=== PATIENT | female | born 1970 | race Caucasian/White ===

== ENCOUNTER → 2016-11-20 | Outpatient (CLI) | payer OTHER | END | disposition home or self-care (01) | LOC: C.PAPS 17:20 | PROVIDERS: ATTEND Obstetrics & Gynecology | DX: Z12.4 Encounter for screening for malignant neoplasm of cervix (principal); R87.616 Satisfactory cervical smear but lacking transformation zone ==

== ENCOUNTER 2017-02-23 06:22 | Inpatient (IN) | payer OTHER ==
[2017-01-25 10:30] VITALS: BMI 40.0
--- NOTE | 2017-01-25 11:04 | PAT Medication Instructions ---
Service Date Jan 25, 2017. Current Home Medication List Esomeprazole Magnesium (Nexium), 40 MG PO QAM Fish Oil ([place]-3), 1 CAP PO QPM Ibuprofen (Motrin), 600 MG PO BID Magnesium Oxide (Mag-Ox), 400 MG PO QPM Multivitamin (Multivitamin), 1 TAB PO QPM Medication Instructions For Your Scheduled Surgery - Hold the following medications 2 weeks prior to surgery: Fish Oil ([place]-3), 1 CAP PO QPM - Hold the following medications 10 days prior to surgery per surgeon's instructions: Ibuprofen (Motrin), 600 MG PO BID - Take the following medications the morning of surgery with a sip of water OTHERWISE NOTHING TO EAT OR DRINK AFTER MIDNIGHT: Esomeprazole Magnesium (Nexium), 40 MG PO QAM Tylenol (may take if needed up to 4 hours prior to surgery) - Take the following medications as scheduled the night before surgery: Magnesium Oxide (Mag-Ox), 400 MG PO QPM Multivitamin (Multivitamin), 1 TAB PO QPM Tylenol If you have any questions please call us at [phone] or [phone] or [phone]
[2017-01-25 11:17] LABS: BASO % 0.5 %; BASO ABS # 0.03 K/uL (0-0.2); COMPLETE YES; EOS % 1.4 %; HEMATOCRIT 39.6 % (37-47); IG% 0.2 %; LYMPH % 25.2 %; LYMPH ABS # 1.47 K/uL (1.2-3.4); MEAN CELL VOLUME 88.4 fL (80-100); MEAN CORPUSCULAR HEMOGLOBIN 29.7 pg (25-34); MEAN CORPUSCULAR HGB CONC 33.6 g/dl (32-36); MEAN PLATELET VOLUME 9.2 fL (7.4-10.4); MONO % 6.2 %; NEUT % 66.5 %; PLATELET COUNT 275 K/uL (130-400); RED BLOOD COUNT 4.48 M/uL (4.2-5.4); WHITE BLOOD COUNT 5.83 K/uL (4.8-10.8)
[2017-01-25 11:25] LABS: PROTHROMBIN TIME (PATIENT) 10.7 SECONDS (9.0-12.0)
[2017-01-25 11:44] LABS: BUN/CREATININE RATIO 14.7 (10-20); CREATININE 0.63 mg/dl (0.60-1.20); POTASSIUM 3.7 mmol/L (3.5-5.1)
--- NOTE | 2017-01-25 11:49 | DIAGNOSTIC IMAGING REPORT ---
CHEST 2 VIEWS ROUTINE HISTORY: 46 years-old Female PAT preadmission exam without acute chest complaints. COMPARISON: None available TECHNIQUE: Frontal and lateral views of the chest FINDINGS: The cardiomediastinal and hilar silhouettes are within normal limits. No pneumothorax, pleural effusion, focal airspace consolidation or overt pulmonary edema. Bones of the chest appear grossly intact. Degenerative changes are seen about the spine and shoulders. IMPRESSION: No acute cardiopulmonary process. The above report was generated using voice recognition software. It may contain grammatical, syntax or spelling errors. Electronically signed by: Dameon Carter M.D. 01/25/2017 11:48 AM Dictated Date/Time: 01/25/2017 11:47 AM
--- NOTE | 2017-02-17 13:56 | HISTORY & PHYSICAL EXAMINATION ---
DATE OF ADMISSION: 02/23/2017 CHIEF COMPLAINT: Bilateral knee pain and discomfort, left side greater than right. HISTORY OF PRESENT ILLNESS: A 46-year-old female from [place] who presents for surgical treatment of her left knee. She has had a 10-plus year history of bilateral knee pain and discomfort, left side a bit worse than the right. She did have a left knee scoped by Dr. Isidro years ago and then subsequently treated with steroid shots and viscosupplementation. This has become less successful over time. The shots helped her minimally. She has had marked pain with any type of weightbearing activities. She cannot walk more than a couple of blocks. She has twins that she is having quite a bit of difficulty keeping up with She would really like to have her left knee fixed. She takes anti-inflammatories including ibuprofen maximally with the minimal results. PAST MEDICAL HISTORY: 1. Gastroesophageal reflux disease. 2. Arthritis. 3. Obesity with a BMI of 41. PAST SURGICAL HISTORY: Include: 1. . 2. Left knee arthroscopy. ALLERGIES: PENICILLIN WHICH CAUSES RASH. No respiratory problems. CURRENT MEDICINES: Include Nexium 40 mg 6 Motrin 800 mg 3 times a day. SOCIAL HISTORY: female. She is 46. She lives in [place]. Rare alcohol intake. Two children. FAMILY HISTORY: Significant for colon cancer, heart disease, diabetes. REVIEW OF SYSTEMS: Negative for diabetes, neurologic problems, vascular problems, bleeding disorders. Denies any chest pain, no shortness of breath. No history of DVT or PE. PHYSICAL EXAMINATION: GENERAL: Reveals a healthy pleasant, middle-aged female. She looks to be in pretty good health. HEENT: Benign. NECK: Supple. No lymphadenopathy. LUNGS: Clear to auscultation. HEART: Has a regular rate and rhythm. ABDOMEN: Soft, nontender, nondistended. EXTREMITIES: Grossly neurovascularly intact except as follows: Examination of the left knee reveals the patient walks with a bit of a waddling gait. She has got well-healed portal sites around the knee. She does have a varus alignment to her knee. Pyjzd-ho-whwrifgh sized knee effusion. Range of motion is 5-120. No instability. No pain with hip motion. X-RAYS: X-rays of the left knee revealed advanced left knee DJD. She has complete loss of the medial joint space. She has got a little bit of tibial femoral subluxation. ASSESSMENT: A 46-year-old white female with advanced bilateral knee degenerative joint disease. The left side is a bit worse than the right. She would like to proceed with left knee replacement. She has failed all conservative care including knee arthroscopy. PLAN: We will take her to the operating room and do a left total knee replacement. The risks and benefits of this procedure were explained to the patient including but not limited to DVT, PE, , infection, neurologic injury, vascular injury, bleeding problems, pain, limited range of motion, stiffness, failure to relieve her symptoms, incomplete relief of symptoms, need for further surgery in the future, fracture, leg length inequality, nerve palsy, persistent pain, need for revision surgery, etc. The patient understands and desires to proceed. Informed consent obtained. I did talk with this patient about her young age and may be knee can be revised in the future. I also talked about her weight and her increased risk of infection as a result. She is aware of this and would like to proceed. She is really begging to have her knee replaced to try and maintain some degree of active lifestyle. As far as discharge plans, she is planning to be discharged to home, using [facility] home health program. Her will assist in her care as well as her twins. JOLIE
[~2017-02-23] VITALS: Ht 162.6 cm; Wt 109.1 kg
[2017-02-23] VITALS (7 sets, daily range): BP systolic 107–138; BP diastolic 69–84; PULSE 72–81; TEMP 36.4–36.9; O2SAT 93–99; Ht 162.6 cm; Wt 109.1 kg
[~2017-02-23 06:22] MED LIST: ACETAMINOPHEN 500 MG TAB PO SCH; BUPIVACAINE LIPOSOME 266 MG, BUPIVACAINE/EPINEPHRINE INJ 50 ML, SODIUM CHLORIDE 0.9% PF... INFIL SCH; CEFAZOLIN 2000MG IV PUSH 10 ML IV SCH; FAMOTIDINE 20 MG TAB PO SCH; GABAPENTIN 300 MG CAP PO SCH; IBUP600T44 PO; LACTATED RINGER'S 1000ML 1,000 ML IV SCH; LACTATED RINGER'S 1000ML 500 ML IV ONE; LACTATED RINGER'S 1000ML IV SCH; LORA-741 PO; MAGN400T6 PO; METOCLOPRAMIDE HCL 10 MG TAB PO SCH; MULT-506 PO; NXM/40 PO; OMEG10007 PO; SCOPOLAMINE 1.5 MG TDSY TD SCH; TRANEXAMIC ACID INJ 1,000 MG in SYRINGE 0 ML IV SCH
[2017-02-23] MEDS ORDERED: BUPIVACAINE 0.25% 30 ML VIAL ONE (06:38)
[2017-02-23] MEDS ORDERED: BUPIVACAINE 0.5 % 5 MG/1 ML PF 10ML VIAL ONE (06:38)
--- NOTE | 2017-02-23 06:56 | History & Physical Bridge Note ---
H&P Re-Evaluation Bridge Note: I have examined the patient, reviewed the History & Physical and in the interval since the performance of the History & Physical I have noted the following changes of clinical significance: No changes noted
[2017-02-23] MEDS ORDERED: MIDAZOLAM HCL 1 MG/ML 2ML VIAL ONE ×3 (07:27→09:32)
[2017-02-23] MEDS ORDERED: PROPOFOL IV EMULSION 10 MG/ML 20 ML VIAL IV ONE (07:27)
[2017-02-23] MEDS ORDERED: LIDOCAINE HCL 2% 2 ML VIAL (20MG/ML) ONE ×2 (07:27→09:21)
[2017-02-23] MEDS ORDERED: ATROPINE SULFATE 0.1 MG/ML 5ML SYR IV PRN (07:30)
[2017-02-23] MEDS ORDERED: EpHEDrine SULFATE INJ 50 MG/ML AMP IV PRN (07:30)
[2017-02-23] MEDS ORDERED: ONDANSETRON INJ 2 MG/ML 2 ML VIAL IV PRN ×2 (07:30→10:45)
[2017-02-23] MEDS ORDERED: FENTANYL CITRATE INJ 50 MCG/1 ML 2 ML VIAL ONE (08:26)
[2017-02-23] MEDS ORDERED: BACITRACIN 50000 UNIT VIAL ONE (08:53)
[2017-02-23] MEDS ORDERED: BUPIVACAINE LIPOSOME 1/3% 266 MG/20 ML VIAL INFIL ONE (08:53)
[2017-02-23] MEDS ORDERED: BUPIVACAINE/EPINEPHRINE 0.25% 1:200,000 30 ML VIAL ONE (08:53)
[2017-02-23] MEDS ORDERED: SODIUM CHLORIDE 0.9% PF 50 ML VIAL ONE (08:53)
[2017-02-23] MEDS ORDERED: ONDANSETRON INJ 2 MG/ML 2 ML VIAL ONE (09:36)
[2017-02-23] MEDS ORDERED: ZOLPIDEM TARTRATE 5 MG TAB PO PRN (10:45)
[2017-02-23] MEDS ORDERED: BISACODYL 10 MG SUPP PR PRN (10:45)
[2017-02-23] MEDS ORDERED: DiphenhydrAMINE HCL 50 MG/ML VIAL IV PRN (10:45)
[2017-02-23] MEDS ORDERED: METOCLOPRAMIDE HCL INJ 5 MG/ML 2 ML VIAL IV PRN (10:45)
[2017-02-23] MEDS ORDERED: MAGNESIUM HYDROXIDE SUSP 30 ML UDC PO PRN (10:45)
[2017-02-23] MEDS ORDERED: ALUMINUM/MAGNESIUM/SIMETH (MAALOX MAX) 30 ML UDC PO PRN (10:45)
[2017-02-23] MEDS ORDERED: LORAZEPAM 0.5 MG TAB PO PRN (10:45)
[2017-02-23] MEDS ORDERED: MoRPHine SULFATE 2 MG/ML CARP IV PRN (10:45)
[2017-02-23] MEDS ORDERED: SILVER SULFADIAZINE 1% CR 50 GM JAR EXT PRN (10:45)
--- NOTE | 2017-02-23 10:45 | [facility] Post Operative Brief Note ---
Immediate Operative Summary Operative Date Feb 23, 2017. Pre-Operative Diagnosis Left knee degenerative joint disease Post-Operative Diagnosis Left knee degenerative joint disease Procedure(s) Performed Left total knee arthroplasty, cemented Surgeon Dr. Godoy Outside Plant Field Engineer Surgeon(s) Luis Alberto Jacobsen PA-C Estimated Blood Loss 50 mL Findings Left Knee DJD Fluids (cc crystalloids) 1500 cc Specimens A: Left knee bone and tissue Drains None Anesthesia Spinal Complication(s) None Disposition Recovery Room / PACU
[2017-02-23] MEDS ORDERED: FRRG PO (10:53)
[2017-02-23] MEDS ORDERED: RXC5 PO (11:06)
[2017-02-23] MEDS ORDERED: ASPEC325 PO (11:06)
[2017-02-23] MEDS ORDERED: ACET-24 PO (11:06)
[2017-02-23] MEDS ORDERED: MORP-157 PO (11:06)
--- NOTE | 2017-02-23 11:34 | Anesthesiology Progress Note ---
Anesthesia Post Op Note Date & Time Feb 23, 2017 at 11:34 Vital Signs Pain Intensity: 0 Vital Signs Past 12 Hours Date Time Temp Pulse Resp B/P (MAP) Pulse Ox O2 Delivery O2 Flow Rate FiO2 02/23/17 11:20 68 18 127/77 100 Nasal Cannula 2 02/23/17 11:10 67 13 124/71 98 Nasal Cannula 2 02/23/17 11:00 73 19 116/72 98 Nasal Cannula 2 02/23/17 10:52 36.9 78 16 123/69 98 Nasal Cannula 2 02/23/17 06:56 36.8 81 20 138/82 96 Room Air Notes Mental Status: alert / awake / arousable, participated in evaluation Pt Amnestic to Procedure: Yes Nausea / Vomiting: adequately controlled Pain: adequately controlled Airway Patency, RR, SpO2: stable & adequate BP & HR: stable & adequate Hydration State: stable & adequate Neuraxial Anesthesia: was administered, sensory block is resolving Anesthetic Complications: no major complications apparent
--- NOTE | 2017-02-23 11:55 | DIAGNOSTIC IMAGING REPORT ---
TWO VIEWS LEFT KNEE CLINICAL HISTORY: Postoperative examination. FINDINGS: AP and crosstable lateral portable views of the left knee are obtained. A left knee arthroplasty is in near anatomic alignment. There has been undersurface remodeling of the patella. No acute fracture is seen. There are expected postoperative changes around the knee including skin clips, soft tissue edema, and subcutaneous gas. IMPRESSION: Expected postoperative changes status post left knee arthroplasty. No acute fracture is seen. Electronically signed by: Azam Castro M.D. 02/23/2017 11:54 AM Dictated Date/Time: 02/23/2017 11:54 AM
[2017-02-23] MEDS: D5W AND 1/2NSS + 20MEQ KCL 1,000 ML IV SCH ×2 (13:36→21:18)
[2017-02-23] MEDS: KETOROLAC TROMETHAMINE 30 MG/ML VIAL IV. SCH ×2 (13:37→18:24)
--- NOTE | 2017-02-23 13:55 | OPERATIVE REPORT ---
DATE OF OPERATION: 02/23/2017 SURGEON: Yan Godoy MD OFFICE AUDITOR: FERNANDEZ Thorne PREOPERATIVE DIAGNOSIS: Left knee degenerative joint disease. POSTOPERATIVE DIAGNOSIS: Same. PROCEDURE PERFORMED: Left cemented posterior stabilized total knee arthroplasty. COMPLICATIONS: None. ESTIMATED BLOOD LOSS: 50 mL. FLUID REPLACEMENT: 1500 mL crystalloid fluid replacement. TOURNIQUET TIME: 54 minutes at 300 mmHg. ANESTHESIA: Spinal with adductor canal block. DRAINS: None. SPECIMENS: Left knee sent for pathology. OPERATIVE INDICATIONS: The patient is a 46-year-old female who has had a long history of bilateral knee pain and discomfort, left side greater than the right. She has been bothered for over 10 years. She has been through extensive conservative treatment including knee arthroscopy done on the outside. She has been through steroid shots and viscosupplementation. This became less successful over time. She elected to proceed with total knee arthroplasty. OPERATIVE FINDINGS: Operative findings revealed advanced left knee DJD. She had grade 4 dceg-it-gijb disease of the medial femoral condyle and medial tibial plateau. She had grade 3 changes in the patellofemoral joint. She had a moderate sized joint effusion. She had a fixed varus deformity to her knee. OPERATIVE IMPLANTS: Operative implants consisted of: 1. Biomet Vanguard left size 65 posterior stabilized femoral component. 2. Biomet size 67 tibial tray. 3. A 10-mm posterior stabilized polyethylene insert. 4. A 31 x 8 all poly patella. OPERATIVE PROCEDURE: The patient was taken to the operating room, identified and placed on the operating table in the supine position. All contact areas were appropriately padded. IV antibiotics were provided by the anesthesia team. A spinal anesthetic and adductor canal block had been provided in the holding area. Montague catheter was placed in sterile fashion. A left thigh tourniquet was then placed and left lower extremity was then prepped and draped in the usual sterile fashion. The left leg was elevated and exsanguinated with Esmarch and tourniquet was placed at 300 mmHg. An anterior approach of the left knee was then performed through a longitudinal incision centered over the patella. Sharp dissection was carried out through the subcutaneous tissues down to the level of the extensor mechanism. Medial parapatellar arthrotomy incision was made. Some subperiosteal dissection was carried out medially. The fat pad was resected from beneath the patellar tendon. The lateral patellofemoral ligament was released. The patella was everted and knee was flexed. The osteophytes were taken off the distal aspect of the femur. The ACL and PCL were then released and the tibia subluxated anteriorly. The external tibial alignment jig was then placed in the anterior face of the tibia and adjusted 14 mm medially. Proximal tibial cut was made to remove about a millimeter of bone from the most deficient aspect of the medial tibial plateau. Some osteophytes were taken off medial and posteromedially. The tibia was sized to a size 67. Attention was then drawn to the femur. The distal femur was entered with a sharp drill. Intramedullary canal was suctioned. A left 5-degree valgus cutting guide was then placed. Distal femoral cutting block was pinned in place. Distal femoral cut was made to take an additional 3 mm of bone off the distal femur. Femur was then sized to a size 65. The AP cutting block was then pinned parallel to the epicondylar axis, which was 5 degrees of external rotation. The anterior cut, anterior chamfer, posterior cut, and posterior chamfer cuts were made. Box cutting guide was placed and adjusted slightly lateral and the box cut was made. The knee was flexed. The remnants of the medial and lateral menisci were excised. The osteophytes were taken off the posterior aspect of the femur. Trial femoral component was placed. Tibial tray was pinned in maximum external rotation and drill and stem punch were used to create defect in proximal tibia for the tibial tray. The knee was then trialed and the 10-mm insert fit most appropriately. Attention was then drawn to the patella. The patella was cleaned of all soft tissues. Patellar thickness measured 22 mm in thickness and it was cut down to 12. It was sized to a size 31 patella. Lug holes were drilled for the 31 patella. The lateral osteophyte was removed. Patella button was placed. Knee was taken through range of motion and the patella tracked nicely with no thumbs test. Attention was then drawn toward placement of permanent components. All trial components were removed. A double-batch Palacos G cement was mixed. A bone plug was placed in the distal femur to limit blood loss. A left size 65 posterior stabilized femoral component, size 67 tibial tray, a 10-mm posterior stabilized polyethylene insert, and a 31 x 8 all poly patella were then cemented in place. Knee was brought out into full extension until cement hardened. A final cement check was then performed. Pericapsular tissues were injected with a total of 100 mL of a combination of 20 mL of Exparel, 30 mL of normal saline, and 50 mL of 0.25% Marcaine with epinephrine. The tourniquet was then let down for final tourniquet time of 54 minutes. Hemostasis was assured with the use of electrocautery. The extensor mechanism was then closed with a combination of #1 PDS suture and #1 Vicryl suture in a [id number] fashion. Extensor mechanism was checked and found to be intact. The subcutaneous tissues were then closed with 2-0 Dexon suture in a buried interrupted fashion. Skin was closed with skin graciela. The leg was then cleaned and dried and a sterile dressing of Xeroform, 4 x 4, sterile cast padding and Jean-Paul bandage were applied. The patient then transferred to the recovery room in stable condition. The patient tolerated the procedure well with no complications. All needle and sponge counts were correct at the end of the operation. I attest to the content of the Intraoperative Record and any orders documented therein. Any exception s are noted below.
--- NOTE | 2017-02-23 14:39 | PROGRESS NOTE ---
DATE: 02/23/2017 SUBJECTIVE: A 46-year-old female postop from a left knee replacement. She is doing well. Just starting to get the function back in her leg. No particular pain yet. No chest pain or shortness of breath. Not feeling dizzy or lightheaded. OBJECTIVE: VITAL SIGNS: Temperature 36.8. Vital signs stable. GENERAL: Physical examination reveals a healthy, pleasant, middle-aged female. She is sitting up in bed and looks pretty comfortable. She is talking to her . LUNGS: Clear to auscultation. HEART: Has a regular rate and rhythm. ABDOMEN: Soft, nontender, and nondistended. EXTREMITIES: Grossly neurovascularly intact except as follows: Examination of the left leg reveals the leg to be well aligned. Dressing is clean, dry and intact. She can dorsiflex and plantarflex her foot slightly. Still weak from the block. She got brisk refill and good distal pulse. X-RAYS: X-rays of the left knee from recovery room were reviewed. It shows a left cemented posterior stabilized total knee arthroplasty. Components looked to be in good position. No signs of problems. ASSESSMENT: A 46-year-old female postop from a left knee replacement, doing well. Her pain is controlled. Nerve function is just returning, but appears to be intact. PLAN: 1. DVT prophylaxis including thigh-high TEDs, SCDs, and aspirin twice a day. 2. PT/OT. Weightbear as tolerated. Left total knee protocol. 3. Pain control. Doing well with current pain regimen. 4. IV antibiotics x24 hours. 5. Disposition: She is planning to be discharged to home with some home health once adequately recovered.
[2017-02-23] MEDS: OXYCODONE HCL IR 5 MG TAB (IMMEDIATE RELEASE) PO PRN ×3 (14:56→20:18)
[2017-02-23] MEDS: ACETAMINOPHEN 500 MG TAB PO SCH ×2 (15:17→21:20)
[2017-02-23] MEDS: CHECK SCOPOLAMINE PATCH PLACEMENT SCH ×2 (15:17→23:38)
[2017-02-23] MEDS: CEFAZOLIN IV 2,000 MG in SYRINGE 0 ML IV SCH (16:47)
[2017-02-23] MEDS ORDERED: TRANEXAMIC ACID INJ 1,000 MG in SODIUM CHLORIDE 0.9% 100ML 100 ML IV SCH (17:00)
[2017-02-23] MEDS: FERROUS GLUCONATE 324 MG TAB PO SCH (17:36)
--- NOTE | 2017-02-23 20:18 | Discharge Instructions ---
Discharge Instructions Date of Service Feb 23, 2017. Admission Reason for Admission: Left Knee Degenerative Joint Disease Discharge Discharge Diagnosis / Problem: Left Knee Replacement Discharge Goals Goal(s): Decrease discomfort, Improve function, Increase independence, Improve disease control, Therapeutic intervention Activity Recommendations Activity Limitations: per Instructions/Follow-up section Weightbearing Status: Left weightbearing . Instructions / Follow-Up Instructions / Follow-Up ACTIVITY RECOMMENDATIONS: Physical Therapy: * You will go to physical therapy three times each week for four to six weeks after your surgery in order to regain your knee range of motion and to retrain your knee to work properly. * It is just as important to make sure you are getting your knee perfectly straight as it is to regain your knee bend. * Taking a pain pill an hour before therapy can help you have a more productive and comfortable therapy session. Home Exercise: * You were shown a series of exercises (heel props, heel slides, etc.) in the hospital. Do these exercises three to four times each day including the exercises you were shown in physical therapy. Walking: * Get up and walk several times each day. For the first four weeks, try not to stand or walk for more than one hour at a time. If you do stand or walk for more than one hour, you will not hurt anything, but your knee and leg will likely swell. * As you feel comfortable, you may change from the walker or crutches to a cane and then to independent walking. MEDICATIONS: New Medicine: * You will likely be taking one or more of these medications: 1. MS Contin - A long-acting pain medication. Take 1 tablet twice a day for the first ten days to decrease your baseline level of pain. 2. Oxycodone - A quick and shorter-acting pain medication. Take one to two tablets every four to six hours to lessen your pain. 3. Iron Sulfate - Take two times each day for the month after surgery to help you replace the blood lost during surgery. 4. Aspirin - Thins your blood to lessen the chance of forming a blood clot. * The most common side effects of pain medicine and iron are nausea and constipation. If nausea or constipation is too much of a problem or if you have any questions about your new medicines or doses, call [facility] at . We will try to help you manage these issues. VERY IMPORTANT TO READ AND REVIEW" Pain: * The immediate post-operative period after knee replacement surgery is often quite painful. * You are given a prescription for pain medicine. You should take it, as directed, when you need it, especially before physical therapy and before going to bed. Pain that interferes with sleep is very common and can last several months. * You will likely need pain medicine for the first four to six weeks. It will not stop all of the pain. The pain will lessen and as you feel better, you may change to milder pain medicine such as Tylenol. * The most common side effects of pain medicine are nausea and constipation, so don't take more than you need. SPECIAL CARE INSTRUCTIONS: TEDs/Elastic Stockings: * The white elastic stockings help limit swelling and prevent blood clots from forming in your legs. The more you wear them, the more they work. * Wear them for six weeks after knee replacement surgery and four weeks after partial knee replacement. Prevention of Infection: * Take antibiotics one hour before any dental cleaning, dental work, urological procedure, gastrointestinal procedure or any invasive surgery in order to prevent your new joint from getting infected. * You may get the antibiotics from the doctor performing the procedure or you may call our office at before and we will call in a prescription to the pharmacy of your choice. Things to Watch For: * Drainage from the incision site that occurs more than one week after your surgery. * Severely increased knee/leg pain or swelling. * Increased redness at the incision site. * Fever above 102 degrees Fahrenheit. * Unusual chest pain or shortness of breath. * Unusual pain or burning with urination. Call [facility] at with any of the above problems or if you have any questions about your medicines or recovery. FOLLOW UP VISIT: Make an appointment to see your doctor for approximately two weeks after surgery for a progress check and staple removal by calling the office at . Current Hospital Diet Patient's current hospital diet: Regular Diet Discharge Diet Recommended Diet: Regular Diet Procedures Procedures Performed: Left total knee arthroplasty, cemented Pending Studies Studies pending at discharge: no Medical Emergencies . Who to Call and When: Medical Emergencies: If at any time you feel your situation is an emergency, please call [phone] immediately. . Non-Emergent Contact Non-Emergency issues call your: Surgeon . "Provider Documentation" section prepared by Yan Godoy. . VTE Core Measure Inpt VTE Proph given/why not?: Other Anticoagulation, T.E.D. Stockings, SCD's
[2017-02-23] MEDS ORDERED: SENNA 8.6 MG TAB PO SCH (21:00)
[2017-02-23] MEDS ORDERED: MAGNESIUM OXIDE 400 MG TAB PO SCH (21:00)
[2017-02-23] MEDS ORDERED: MULTIVITAMIN TAB PO SCH (21:00)
[2017-02-23] MEDS: TAPENTADOL ER 50 MG TABCR PO SCH (21:19)
[2017-02-23] MEDS: ASPIRIN 325 MG ECTAB PO SCH (21:21)
[2017-02-23] MEDS: DOCUSATE SODIUM 100 MG CAP PO SCH (21:21)
[2017-02-24] MEDS: KETOROLAC TROMETHAMINE 30 MG/ML VIAL IV. SCH ×3 (02:06→12:34)
[2017-02-24] MEDS: D5W AND 1/2NSS + 20MEQ KCL 1,000 ML IV SCH ×2 (02:07→08:43)
[2017-02-24] MEDS: CEFAZOLIN IV 2,000 MG in SYRINGE 0 ML IV SCH (02:08)
[2017-02-24 03:40] VITALS: BP 108/68; PULSE 81; TEMP 37.3; O2SAT 94
[2017-02-24] MEDS: ACETAMINOPHEN 500 MG TAB PO SCH ×2 (06:10→13:38)
[2017-02-24 07:30] LABS: HEMATOCRIT 34.7 % (37-47); MEAN CELL VOLUME 90.6 fL (80-100); MEAN CORPUSCULAR HEMOGLOBIN 29.2 pg (25-34); MEAN CORPUSCULAR HGB CONC 32.3 g/dl (32-36); MEAN PLATELET VOLUME 9.3 fL (7.4-10.4); PLATELET COUNT 231 K/uL (130-400); RED BLOOD COUNT 3.83 M/uL (4.2-5.4); WHITE BLOOD COUNT 8.61 K/uL (4.8-10.8)
[2017-02-24] MEDS: CHECK SCOPOLAMINE PATCH PLACEMENT SCH ×2 (07:34→16:13)
[2017-02-24 07:51] VITALS: BP 122/80; PULSE 82; TEMP 36.9; O2SAT 95
[2017-02-24 07:56] LABS: BUN/CREATININE RATIO 13.6 (10-20); CALCIUM 8.4 mg/dl (8.5-10.1); CREATININE 0.59 mg/dl (0.60-1.20); POTASSIUM 4.1 mmol/L (3.5-5.1)
[2017-02-24 08:23] VITALS: O2SAT 95
[2017-02-24] MEDS: FERROUS GLUCONATE 324 MG TAB PO SCH ×2 (08:38→12:31)
[2017-02-24] MEDS: ASPIRIN 325 MG ECTAB PO SCH (08:39)
[2017-02-24] MEDS: TAPENTADOL ER 50 MG TABCR PO SCH (08:39)
[2017-02-24] MEDS: DOCUSATE SODIUM 100 MG CAP PO SCH (08:39)
[2017-02-24] MEDS: OXYCODONE HCL IR 5 MG TAB (IMMEDIATE RELEASE) PO PRN ×2 (08:42→12:51)
[2017-02-24] MEDS ORDERED: MULTIVITAMIN TAB PO SCH (09:00)
[2017-02-24] MEDS ORDERED: PANTOprazole SOD 40 MG TAB PO SCH (09:00)
[2017-02-24] MEDS ORDERED: NON-FORMULARY MEDICATION (Esomeprazole Magnesium (Nexium) 40 MG) PO SCH (09:00)
--- NOTE | 2017-02-24 10:20 | Anesthesiology Progress Note ---
Anesthesia Post Op Note Date & Time Feb 24, 2017 at 10:18 Vital Signs Vital Signs Past 12 Hours Date Time Temp Pulse Resp B/P (MAP) Pulse Ox O2 Delivery O2 Flow Rate FiO2 02/24/17 08:23 95 Room Air 02/24/17 07:51 36.9 82 18 122/80 (94) 95 Room Air 02/24/17 07:15 Room Air 02/24/17 03:40 37.3 81 16 108/68 (81) 94 Room Air 02/23/17 23:15 Room Air 02/23/17 22:51 36.4 78 16 107/69 (82) 93 Room Air Notes Neuraxial Anesthesia: sensory block resolved
[2017-02-24 11:50] VITALS: BP 118/78; PULSE 73; TEMP 36.6; O2SAT 99
[2017-02-24 14:53] VITALS: BP 100/65; PULSE 73; TEMP 36.4; O2SAT 94
[2017-02-24 17:36] VITALS: BP 100/65; PULSE 73; TEMP 36.4; O2SAT 94
--- NOTE | 2017-02-24 17:49 | PROGRESS NOTE ---
DATE: 02/24/2017 SUBJECTIVE: A 46-year-old female postop day #1 from a left knee replacement. She is doing well. Pain is controlled. Therapy went well. She wants to go home. OBJECTIVE: VITAL SIGNS: Temperature is 36.4. Vital signs stable. GENERAL: Physical examination reveals a healthy, pleasant middle-aged female. She is lying in bed and looks pretty comfortable. LUNGS: Clear to auscultation. HEART: Regular rate and rhythm. ABDOMEN: Soft, nontender, and nondistended. EXTREMITIES: Grossly neurovascularly intact except as follows: Examination of the left lower extremity reveals the dressing to be clean, dry and intact. She can dorsiflex and plantarflex her foot appropriately. She is neurologically intact. LABORATORY DATA: Hemoglobin 11.2. Hematocrit 34.7. Electrolytes are stable. ASSESSMENT: A 46-year-old female postop day #1 from a left knee replacement, doing well. Pain is controlled. PLAN: 1. DVT prophylaxis including thigh-high TEDs, SCDs, and aspirin twice a day. 2. PT/OT. Weightbear as tolerated. Left total knee protocol. 3. Pain control. Doing well with current pain regimen. 4. Disposition: Plan to discharge to home with some home health. She is anxious and wants to go home this evening.
--- NOTE | 2017-03-01 14:56 | DISCHARGE SUMMARY ---
ADMITTING PHYSICIAN AND SURGEON: Dr. Godoy. ADMITTING DIAGNOSIS: Left knee degenerative joint disease. SURGERY PERFORMED: Left total knee arthroplasty. SECONDARY DIAGNOSES: Gastroesophageal reflux disease, arthritis, obesity. CONSULTS: None obtained. HISTORY AND PHYSICAL EXAMINATION: Well documented in the patient's chart. HOSPITAL COURSE: The patient was admitted on 02/23/2017, underwent total knee arthroplasty, tolerated the procedure well. There were no complications. She was transferred to the PACU postoperatively and later to the orthopedic floor for further care. She was given Ancef for antibiotic prophylaxis, RITA stockings, SCDs and aspirin for DVT prophylaxis. Hemoglobin, hematocrit and vital signs were monitored during her hospital stay and remained stable. She did not require any blood transfusions. There were no complications. By postoperative day 1, she was tolerating a general diet. Pain was controlled with oral pain medicine. She was participating in physical therapy and had no signs or symptoms of deep vein thrombosis. On postop day 1, she was discharged home and set up with home health services. She was given printed discharge instructions including new prescriptions for extra strength Tylenol, aspirin 325 mg b.i.d., iron supplement, MS Contin and oxycodone. Continue her home medications, continue physical therapy, weightbearing as tolerated, RITA stockings. Follow up in 10-12 days or sooner if there are any problems or concerns.
== END 2017-02-24 18:20 | disposition home health service (06) | DRG 470 ==
LOC: C.ACU 06:22 → C.3E 06:40 → ENRESERV 11:58
PROVIDERS: ADMIT Orthopaedic Surgery Sports Medicine; ATTEND Orthopaedic Surgery Sports Medicine
PROC: 0SRD0J9 Replacement of Left Knee Joint with Synthetic Substitute, Cemented, Open Approach (ICD-10-PCS; principal; 2017-02-23 08:55)
DX: M17.12 Unilateral primary osteoarthritis, left knee (principal); Z68.41 Body mass index [BMI] 40.0-44.9, adult; K21.9 Gastro-esophageal reflux disease without esophagitis; E66.9 Obesity, unspecified; Z88.0 Allergy status to penicillin; Z83.3 Family history of diabetes mellitus; Z82.49 Family history of ischemic heart disease and other diseases of the circulatory system

== ENCOUNTER → 2017-06-03 | Outpatient (CLI) | payer OTHER ==
[~2017-06-03] MED LIST changes: -ACETAMINOPHEN 500 MG TAB PO SCH; -BUPIVACAINE LIPOSOME 266 MG, BUPIVACAINE/EPINEPHRINE INJ 50 ML, SODIUM CHLORIDE 0.9% PF... INFIL SCH; -CEFAZOLIN 2000MG IV PUSH 10 ML IV SCH; -FAMOTIDINE 20 MG TAB PO SCH; -GABAPENTIN 300 MG CAP PO SCH; +IBUP-1451 PO; -IBUP600T44 PO; -LACTATED RINGER'S 1000ML 1,000 ML IV SCH; -LACTATED RINGER'S 1000ML 500 ML IV ONE; -LACTATED RINGER'S 1000ML IV SCH; -METOCLOPRAMIDE HCL 10 MG TAB PO SCH; -OMEG10007 PO; -SCOPOLAMINE 1.5 MG TDSY TD SCH; +SUMA25TA12 PO; -TRANEXAMIC ACID INJ 1,000 MG in SYRINGE 0 ML IV SCH
[2017-06-03 17:40] LABS: BASO % 0.3 %; BASO ABS # 0.02 K/uL (0-0.2); EOS ABS # 0.06 K/uL (0-0.5); HEMATOCRIT 39.8 % (37-47); HEMOGLOBIN 13.1 g/dL (12.0-16.0); IG# 0.02 K/uL (0.00-0.02); LYMPH ABS # 1.81 K/uL (1.2-3.4); MEAN CELL VOLUME 88.4 fL (80-100); MEAN CORPUSCULAR HEMOGLOBIN 29.1 pg (25-34); MEAN CORPUSCULAR HGB CONC 32.9 g/dl (32-36); MEAN PLATELET VOLUME 9.5 fL (7.4-10.4); MONO % 6.3 %; MONO ABS # 0.37 K/uL (0.11-0.59); NEUT % 61.1 %; NEUT ABS # 3.55 K/uL (1.4-6.5); PLATELET COUNT 293 K/uL (130-400); RED CELL DISTRIBUTION WIDTH CV 13.4 % (11.5-14.5); RED CELL DISTRIBUTION WIDTH SD 43.2 fL (36.4-46.3); WHITE BLOOD COUNT 5.83 K/uL (4.8-10.8)
[2017-06-03 17:48] LABS: PTT PATIENT 25.9 SECONDS (21.0-31.0)
== END | disposition home or self-care (01) ==
LOC: C.LABMFLN 10:55
PROVIDERS: ATTEND Orthopaedic Surgery Sports Medicine
DX: Z01.818 Encounter for other preprocedural examination (principal)

== ENCOUNTER 2017-06-11 09:55 | Inpatient (IN) | payer OTHER ==
[2017-05-06 15:56] VITALS: BMI 40.0
--- NOTE | 2017-06-03 22:14 | HISTORY & PHYSICAL EXAMINATION ---
DATE OF ADMISSION: 06/11/2017 CHIEF COMPLAINT: Right knee pain and discomfort. HISTORY OF PRESENT ILLNESS: A 46-year-old female who is now about 3-1/2 months out from a left knee replacement who presents for surgical treatment of her right knee. She has got a long history of bilateral knee pain and discomfort becoming less responsive to conservative care. This pain is on for over 10 years. She has been through extensive conservative treatment including steroid shots, viscous supplementation and medicines. The medicines and injection become less successful over time. Walking tolerance is limited. She has pain walking. Her left knee has done great and she would like to proceed with right knee replacement. PAST MEDICAL HISTORY: Significant for: 1. Gastroesophageal reflux disease. 2. Arthritis. 3. Obesity with BMI of 41. PAST SURGICAL HISTORY: Include: 1. . 2. Left knee arthroscopy. 3. Left knee total knee replacement done in 02/23/2017. ALLERGIES: PENICILLIN WHICH CAUSES A RASH. No respiratory problems. She got Ancef before her previous surgery. CURRENT MEDICINES: Include: 1. Nexium 40 mg a day. 2. Motrin 800 mg 3 times a day. SOCIAL HISTORY: A 46-year-old female. She is from [place]. Two children. FAMILY HISTORY: Colon cancer, heart disease, diabetes. REVIEW OF SYSTEMS: Negative for diabetes, neurologic problems, vascular problems, bleeding disorders. No chest pain or shortness of breath. No history of DVT or PE. PHYSICAL EXAMINATION: GENERAL: Reveals a pleasant, healthy, middle-aged female. She looks to be in good health. HEENT: Benign. NECK: Supple. No lymphadenopathy. LUNGS: Clear to auscultation. HEART: Has a regular rate and rhythm. ABDOMEN: Soft, nontender, nondistended. EXTREMITIES: Grossly neurovascularly intact except as follows: Examination of the left knee reveals a well-healed incision. She can walk without any limp on this side. Range of motion is 0-120. Good straight leg raise. No instability. Examination of the right knee reveals slight varus alignment. Moderate soft tissue envelope. She is tender over the medial joint line. Moderate size knee effusion. Range of motion 5-120. No instability. X-RAYS: X-ray of the right knee reveal advanced right knee DJD. She has got complete loss of her medial joint space. She has got tibial femoral subluxation. ASSESSMENT: A 46-year-old female now 3-1/2 months out from left knee replacement with advanced right knee degenerative joint disease. She has failed conservative treatment and would like to have her right knee replaced. She is very happy with her left knee. PLAN: We will take her to the operating room and do a right total knee replacement. The risks and benefits of this procedure were explained to the patient include but not limited to DVT, PE, , infection, neurological injury, vascular injury, bleeding problem, pain, limited range of motion, stiffness, failure to relieve her symptoms, incomplete relief of symptoms, need for further surgery in the future, fracture, leg length inequality, nerve palsy, need for blood transfusion, etc. The patient understands and desires to proceed. Informed consent was obtained. She is fully aware at her young age, she may need this revised 100 times in the future. As far as discharge plans, she is planning to be discharged to home with Home Health. She knows to stop the Motrin 10 days preop. [facility]
[~2017-06-11] VITALS: Ht 162.6 cm; Wt 109.1 kg
[2017-06-11] VITALS (8 sets, daily range): BP systolic 111–148; BP diastolic 67–89; PULSE 65–79; TEMP 36.4–37.1; O2SAT 94–100; Ht 162.6 cm; Wt 109.1 kg
[~2017-06-11 09:55] MED LIST changes: +ACETAMINOPHEN 500 MG TAB PO SCH; +BUPIVACAINE 0.5 % 5 MG/1 ML PF 10ML VIAL ONE; +BUPIVACAINE LIPOSOME 266 MG, BUPIVACAINE/EPINEPHRINE INJ 50 ML, SODIUM CHLORIDE 0.9% PF... INFIL SCH; +CEFAZOLIN 2000MG IV PUSH 15 ML IV SCH; +DEXAMETHASONE 4 MG TAB PO SCH; +FAMOTIDINE 20 MG TAB PO SCH; +LACTATED RINGER'S 1000ML 1,000 ML IV SCH; +LACTATED RINGER'S 1000ML 500 ML IV SCH; +LACTATED RINGER'S 1000ML IV SCH; +METOCLOPRAMIDE HCL 10 MG TAB PO SCH; +SCOPOLAMINE 1.5 MG TDSY TD SCH; +TRANEXAMIC ACID INJ 1,000 MG x 1 Bag Preop IV SCH
[2017-06-11] MEDS ORDERED: BACITRACIN 50000 UNIT VIAL ONE (10:37)
[2017-06-11] MEDS ORDERED: SODIUM CHLORIDE 0.9% PF 50 ML VIAL ONE (10:37)
[2017-06-11] MEDS ORDERED: BUPIVACAINE LIPOSOME 1/3% 266 MG/20 ML VIAL INFIL ONE (10:37)
[2017-06-11] MEDS ORDERED: EpINEphrine HCL INJ 1 MG/ML 1ML SYRINGE ONE (10:38)
[2017-06-11] MEDS ORDERED: BUPIVACAINE 0.25% 30 ML VIAL ONE ×2 (10:38→11:17)
[2017-06-11] MEDS ORDERED: MIDAZOLAM HCL 1 MG/ML 2ML VIAL ONE ×3 (11:34→12:05)
[2017-06-11] MEDS ORDERED: FENTANYL CITRATE INJ 50 MCG/1 ML 2 ML VIAL ONE (11:34)
[2017-06-11] MEDS ORDERED: LIDOCAINE HCL 2% 2 ML VIAL (20MG/ML) ONE (12:26)
[2017-06-11] MEDS ORDERED: ONDANSETRON INJ 2 MG/ML 2 ML VIAL ONE (12:26)
[2017-06-11] MEDS ORDERED: PROPOFOL IV EMULSION 10 MG/ML 20 ML VIAL IV ONE (12:26)
--- NOTE | 2017-06-11 13:44 | [facility] Post Operative Brief Note ---
Immediate Operative Summary Operative Date Jun 11, 2017. Pre-Operative Diagnosis Degenerative Joint Disease Right Knee Post-Operative Diagnosis Degenerative Joint Disease Right Knee Procedure(s) Performed Right Total Knee Arthroplasty Surgeon [employer] Surgeon(s) Ann-Marie Estimated Blood Loss 50 ML Findings Consistent with Post-Op Diagnosis Fluids (cc crystalloids) 1500 cc Specimens Bone/Tissue Right Knee Drains None Anesthesia Type MAC Spinal Regional Complication(s) none Disposition Accompanied Pt To Recover: no Disposition: Recovery Room / PACU
[2017-06-11] MEDS ORDERED: ONDANSETRON INJ 2 MG/ML 2 ML VIAL IV PRN (13:45)
[2017-06-11] MEDS ORDERED: ZOLPIDEM TARTRATE 5 MG TAB PO PRN (13:45)
[2017-06-11] MEDS ORDERED: DiphenhydrAMINE HCL 50 MG/ML VIAL IV PRN (13:45)
[2017-06-11] MEDS ORDERED: BISACODYL 10 MG SUPP PR PRN (13:45)
[2017-06-11] MEDS ORDERED: METOCLOPRAMIDE HCL INJ 5 MG/ML 2 ML VIAL IV PRN (13:45)
[2017-06-11] MEDS ORDERED: SILVER SULFADIAZINE 1% CR 50 GM JAR EXT PRN (13:45)
[2017-06-11] MEDS ORDERED: LORAZEPAM 0.5 MG TAB PO PRN (13:45)
[2017-06-11] MEDS ORDERED: ALUMINUM/MAGNESIUM/SIMETH (MAALOX MAX) 30 ML UDC PO PRN (13:45)
[2017-06-11] MEDS ORDERED: SUMATRIPTAN SUCCINATE 25 MG TAB PO PRN (13:45)
[2017-06-11] MEDS ORDERED: MAGNESIUM HYDROXIDE SUSP 30 ML UDC PO PRN (13:45)
--- NOTE | 2017-06-11 14:16 | DIAGNOSTIC IMAGING REPORT ---
R KNEE 1 OR 2 VIEWS ROUTINE HISTORY: 46 years-old Female AP/LATERAL IN PACU RIGHT KNEE right knee total joint arthroplasty. Degenerative joint disease of the knee. COMPARISON: Bilateral knee radiographs 12/03/2016 TECHNIQUE: 2 views of the right knee FINDINGS: Postoperative changes from recent right knee total joint arthroplasty and patellar resurfacing. Alignment is satisfactory. No periprosthetic fracture or retained foreign body identified. Anterior midline skin graciela are noted in addition to expected postsurgical soft tissue swelling and deep tissue air. IMPRESSION: Right knee total joint arthroplasty with patellar resurfacing demonstrates satisfactory alignment. The above report was generated using voice recognition software. It may contain grammatical, syntax or spelling errors. Electronically signed by: Dameon Carter M.D. 06/11/2017 2:15 PM Dictated Date/Time: 06/11/2017 2:13 PM
--- NOTE | 2017-06-11 15:35 | Anesthesiology Progress Note ---
Anesthesia Post Op Note Date & Time Jun 11, 2017 at 15:34 Vital Signs Pain Intensity: 0.0 Vital Signs Past 12 Hours Date Time Temp Pulse Resp B/P (MAP) Pulse Ox O2 Delivery O2 Flow Rate FiO2 06/11/17 15:00 100 Nasal Cannula 2.0 06/11/17 14:58 36.7 65 18 145/89 (107) 100 Nasal Cannula 2.0 06/11/17 14:45 76 24 147/96 100 Nasal Cannula 2 06/11/17 14:35 36.3 68 17 140/90 100 Nasal Cannula 2 06/11/17 14:25 65 15 132/80 100 Nasal Cannula 2 06/11/17 14:15 65 17 142/85 100 Nasal Cannula 2 06/11/17 14:05 68 18 131/87 100 Nasal Cannula 2 06/11/17 13:55 74 15 120/78 99 Nasal Cannula 2 06/11/17 13:49 36.0 86 20 110/82 99 Nasal Cannula 2 06/11/17 10:20 36.5 73 20 136/87 97 Room Air Notes Mental Status: alert / awake / arousable, participated in evaluation Pt Amnestic to Procedure: Yes Nausea / Vomiting: adequately controlled Pain: adequately controlled Airway Patency, RR, SpO2: stable & adequate BP & HR: stable & adequate Hydration State: stable & adequate Neuraxial Anesthesia: was administered, sensory block is resolving Anesthetic Complications: no major complications apparent
[2017-06-11] MEDS: CHECK SCOPOLAMINE PATCH PLACEMENT SCH ×2 (15:47→23:42)
[2017-06-11] MEDS: KETOROLAC TROMETHAMINE 30 MG/ML VIAL IV. SCH ×2 (17:26→23:42)
[2017-06-11] MEDS: FERROUS GLUCONATE 324 MG TAB PO SCH (17:26)
[2017-06-11] MEDS: OXYCODONE HCL IR 5 MG TAB (IMMEDIATE RELEASE) PO PRN ×2 (17:26→20:50)
[2017-06-11] MEDS: D5W AND 1/2NSS + 20MEQ KCL 1,000 ML IV SCH (18:12)
[2017-06-11] MEDS: MoRPHine SULFATE 2 MG/ML CARP IV PRN ×2 (18:13→20:09)
[2017-06-11] MEDS ORDERED: TRANEXAMIC ACID INJ 1,000 MG in SODIUM CHLORIDE 0.9% 100ML 100 ML IV SCH (20:00)
[2017-06-11] MEDS: CEFAZOLIN IV 2,000 MG in SYRINGE 0 ML IV SCH (20:08)
--- NOTE | 2017-06-11 20:36 | OPERATIVE REPORT ---
DATE OF OPERATION: 06/11/2017 SURGEON: Yan Godoy MD ADMIN DIR: FERNANDEZ Thorne. PREOPERATIVE DIAGNOSIS: Right knee degenerative joint disease. POSTOPERATIVE DIAGNOSIS: Same. PROCEDURE PERFORMED: Right cemented posterior stabilized total knee arthroplasty. COMPLICATIONS: None. ESTIMATED BLOOD LOSS: 50 mL. FLUID REPLACEMENT: 1500 mL crystalloid fluid replacement. TOURNIQUET TIME: 55 minutes at 300 mmHg. ANESTHESIA: Spinal with adductor canal block. DRAINS: None. SPECIMENS: Right knee sent for pathology. OPERATIVE INDICATIONS: The patient is a 46-year-old female now about 3-1/2 weeks out from a left knee replacement who presents for surgical treatment of her right knee. She has a 10+ year history of bilateral knee pain and discomfort. She has been through extensive conservative treatments and this became less successful over time. She is very limited in her activity level and having difficulty keeping up with her children. She is very happy with the left knee and wants to proceed with right knee replacement. OPERATIVE FINDINGS: Operative findings were advanced right knee DJD. She had grade 4 [id number] disease of the entire medial femoral condyle and medial tibial plateau. The rest of the knee joint was fairly well preserved. She had a varus deformity to her knee. Osteophytes in the medial compartment. OPERATIVE IMPLANTS: Operative implants consisted of: 1. Biomet Vanguard size 62.5 right posterior stabilized femoral component. 2. Biomet size 63 tibial tray. 3. 10 mm posterior stabilized polyethylene insert. 4. 28 x 8 all poly patella. OPERATIVE PROCEDURE: The patient was taken to the operating room, identified and placed on the operating table in supine position. All contact areas were appropriately padded. IV antibiotics were provided by anesthesia team. A spinal anesthetic and adductor canal block provided in the holding area. Montague catheter was placed in sterile fashion. Right thigh tourniquet was then placed. The right lower extremity was then prepped and draped in usual sterile fashion. The right leg was elevated and exsanguinated with Esmarch and tourniquet was placed at 300 mmHg. An anterior approach of the right knee was then performed through a longitudinal incision centered over the patella. Sharp dissection was carried through the subcutaneous tissues down to the level of the extensor mechanism. A medial parapatellar arthrotomy incision was made. Some subperiosteal dissection was carried out medially. The fat pad resected from beneath the patellar tendon. Lateral patellofemoral ligament was released. Patella was everted, and the knee was flexed. The osteophytes were taken off the distal femur. The ACL and PCL were then released from the distal femur and the tibia subluxated anteriorly. The external tibial alignment jig was then placed in the anterior face of the tibia and adjusted 14 mm medially. Proximal tibial cut was made to remove about a millimeter or 2 of bone from the most deficient aspect of the medial tibial plateau. Some osteophytes were taken off medial and posteromedially. The tibia was then sized to a size 63. Attention was then drawn to the femur. The distal femur was entered with a sharp drill. Intramedullary canal was suctioned. A right 5 degree valgus cutting guide was placed. Distal femoral cutting block was pinned in place. Distal femoral cut was made to take an additional 3 mm of bone off the distal femur. The femur was then sized to a size 62.5. We did downsize this slightly. The AP cutting block was pinned parallel to the epicondylar axis which was 4 degrees of external rotation. The anterior cut, anterior chamfer cut, posterior cut, posterior chamfer cuts were made. Box cutting guide was placed and adjusted slight lateral and the box cut was made. The knee was flexed and the remnants of the medial and lateral menisci were excised. The osteophytes were taken off the posterior aspect of the femur. Trial femoral component was placed. Tibial tray was pinned in maximum external rotation and the drill and stem punch were used to create defect in proximal tibia for the tibial tray. The knee was then trialed and a 10 mm insert fit most appropriately. It was a little bit loose, but I was afraid the 12 was a little bit tight. Attention was then drawn to the patella. Grossman was cleaned of all soft tissues. Patella thickness measured 18 mm, cut down to 12. It was sized to a size 28 patella. Lug holes were drilled for a 28 patella. Lateral osteophyte was removed. Patella button was placed. Knee was taken through range of motion and patella tracked nicely with no thumbs test. Attention was then drawn toward placement of the permanent components. All trial components were removed. A bone plug was placed in the distal femur to limit blood loss. A double batch of Palacos G cement was mixed. A right size 62.5 posterior stabilized femoral component, size 63 tibial tray, a 10 mm posterior stabilized polyethylene insert, and a 28 x 8 all poly patella then cemented in place. Knee was brought into full extension until cement hardened. A final cement check was then performed. Pericapsular tissues were injected to a total of 100 mL of a combination of 20 mL of Exparel, 30 mL of normal saline, 50 mL of 0.25% Marcaine with epinephrine. The patient did receive 1 gram of tranexamic acid. The tourniquet was then let down for a tourniquet time of 55 minutes. Hemostasis was assured with use of electrocautery. The wound was once again irrigated. The extensor mechanism was then closed with a combination of #1 PDS suture and #1 Vicryl suture in a [id number] fashion. Extensor mechanism was checked and found to be intact. Subcutaneous tissues closed with #2 Dexon suture in a buried interrupted fashion. Skin was closed with skin graciela. Leg was then cleaned and dried and a sterile dressing of Xeroform, 4 x 4's, sterile cast padding and Jean-Paul bandage were applied. The patient then transferred to the recovery room in stable condition. The patient tolerated the procedure well with no complication. All needle and sponge counts were correct at the end of the operation. I attest to the content of the Intraoperative Record and any orders documented therein. Any exception s are noted below.
[2017-06-11] MEDS: DOCUSATE SODIUM 100 MG CAP PO SCH (20:52)
[2017-06-11] MEDS: ASPIRIN 81 MG ECTAB PO SCH (20:52)
[2017-06-11] MEDS: TAPENTADOL ER 50 MG TABCR PO SCH (20:57)
[2017-06-11] MEDS ORDERED: MAGNESIUM OXIDE 400 MG TAB PO SCH (21:00)
[2017-06-11] MEDS ORDERED: MULTIVITAMIN TAB PO SCH (21:00)
[2017-06-11] MEDS ORDERED: SENNA 8.6 MG TAB PO SCH (21:00)
[2017-06-11] MEDS: ACETAMINOPHEN 500 MG TAB PO SCH (21:57)
[2017-06-11] MEDS ORDERED: COUGH DROP (SUGAR FREE) LOZ 24 LOZ/1 BOX LOZ ONE (23:55)
[2017-06-12] MEDS ORDERED: COUGH DROP (SUGAR FREE) LOZ 24 LOZ/1 BOX LOZ PRN (00:15)
[2017-06-12] MEDS: D5W AND 1/2NSS + 20MEQ KCL 1,000 ML IV SCH ×2 (01:06→08:03)
[2017-06-12 03:38] VITALS: BP 106/67; PULSE 82; TEMP 37.2; O2SAT 84; O2SAT 95
[2017-06-12] MEDS: CEFAZOLIN IV 2,000 MG in SYRINGE 0 ML IV SCH (03:49)
[2017-06-12] MEDS: KETOROLAC TROMETHAMINE 30 MG/ML VIAL IV. SCH ×2 (05:47→12:12)
[2017-06-12] MEDS: ACETAMINOPHEN 500 MG TAB PO SCH ×2 (05:48→14:14)
[2017-06-12] MEDS ORDERED: NURSING DECISION MEDICATION ORDER SCH ×2 (06:15)
[2017-06-12] MEDS: OXYCODONE HCL IR 5 MG TAB (IMMEDIATE RELEASE) PO PRN ×2 (07:10→11:12)
[2017-06-12] MEDS: CHECK SCOPOLAMINE PATCH PLACEMENT SCH (07:12)
[2017-06-12 07:17] VITALS: BP 119/76; PULSE 71; TEMP 36.4; O2SAT 95
[2017-06-12 07:18] LABS: HEMATOCRIT 34.8 % (37-47); HEMOGLOBIN 11.2 g/dL (12.0-16.0); MEAN CELL VOLUME 88.8 fL (80-100); MEAN CORPUSCULAR HEMOGLOBIN 28.6 pg (25-34); MEAN CORPUSCULAR HGB CONC 32.2 g/dl (32-36); MEAN PLATELET VOLUME 9.6 fL (7.4-10.4); PLATELET COUNT 246 K/uL (130-400); RED CELL DISTRIBUTION WIDTH CV 13.3 % (11.5-14.5); RED CELL DISTRIBUTION WIDTH SD 42.9 fL (36.4-46.3); WHITE BLOOD COUNT 8.03 K/uL (4.8-10.8)
[2017-06-12 07:45] LABS: CALCIUM 8.2 mg/dl (8.5-10.1); CREATININE 0.65 mg/dl (0.60-1.20); POTASSIUM 4.2 mmol/L (3.5-5.1)
[2017-06-12] MEDS ORDERED: RXC5 PO (07:56)
[2017-06-12] MEDS ORDERED: ASPEC81 PO (07:56)
[2017-06-12] MEDS ORDERED: ACET-24 PO (07:56)
--- NOTE | 2017-06-12 07:58 | Discharge Instructions ---
Discharge Instructions Date of Service Jun 12, 2017. Admission Reason for Admission: Right Knee Degenerative Joint Disease Discharge Discharge Diagnosis / Problem: Right Knee REplacement Discharge Goals Goal(s): Decrease discomfort, Improve function, Increase independence, Improve disease control, Therapeutic intervention Activity Recommendations Activity Limitations: per Instructions/Follow-up section Weightbearing Status: Right weightbearing . Instructions / Follow-Up Instructions / Follow-Up ACTIVITY RECOMMENDATIONS: Physical Therapy: * You will go to physical therapy three times each week for four to six weeks after your surgery in order to regain your knee range of motion and to retrain your knee to work properly. * It is just as important to make sure you are getting your knee perfectly straight as it is to regain your knee bend. * Taking a pain pill an hour before therapy can help you have a more productive and comfortable therapy session. Home Exercise: * You were shown a series of exercises (heel props, heel slides, etc.) in the hospital. Do these exercises three to four times each day including the exercises you were shown in physical therapy. Walking: * Get up and walk several times each day. For the first four weeks, try not to stand or walk for more than one hour at a time. If you do stand or walk for more than one hour, you will not hurt anything, but your knee and leg will likely swell. * As you feel comfortable, you may change from the walker or crutches to a cane and then to independent walking. MEDICATIONS: New Medicine: * You will likely be taking one or more of these medications: 1. MS Contin - A long-acting pain medication. Take 1 tablet twice a day for the first ten days to decrease your baseline level of pain. 2. Oxycodone - A quick and shorter-acting pain medication. Take one to two tablets every four to six hours to lessen your pain. 3. Aspirin - Thins your blood to lessen the chance of forming a blood clot. * The most common side effects of pain medicine and iron are nausea and constipation. If nausea or constipation is too much of a problem or if you have any questions about your new medicines or doses, call [facility] at [phone]. We will try to help you manage these issues. VERY IMPORTANT TO READ AND REVIEW" Pain: * The immediate post-operative period after knee replacement surgery is often quite painful. * You are given a prescription for pain medicine. You should take it, as directed, when you need it, especially before physical therapy and before going to bed. Pain that interferes with sleep is very common and can last several months. * You will likely need pain medicine for the first four to six weeks. It will not stop all of the pain. The pain will lessen and as you feel better, you may change to milder pain medicine such as Tylenol. * The most common side effects of pain medicine are nausea and constipation, so don't take more than you need. SPECIAL CARE INSTRUCTIONS: TEDs/Elastic Stockings: * The white elastic stockings help limit swelling and prevent blood clots from forming in your legs. The more you wear them, the more they work. * Wear them for six weeks after knee replacement surgery and four weeks after partial knee replacement. Prevention of Infection: * Take antibiotics one hour before any dental cleaning, dental work, urological procedure, gastrointestinal procedure or any invasive surgery in order to prevent your new joint from getting infected. * You may get the antibiotics from the doctor performing the procedure or you may call our office at before and we will call in a prescription to the pharmacy of your choice. Things to Watch For: * Drainage from the incision site that occurs more than one week after your surgery. * Severely increased knee/leg pain or swelling. * Increased redness at the incision site. * Fever above 102 degrees Fahrenheit. * Unusual chest pain or shortness of breath. * Unusual pain or burning with urination. Call [facility] at with any of the above problems or if you have any questions about your medicines or recovery. FOLLOW UP VISIT: Make an appointment to see your doctor for approximately two weeks after surgery for a progress check and staple removal by calling the office at . Current Hospital Diet Patient's current hospital diet: Regular Diet Discharge Diet Recommended Diet: Regular Diet Procedures Procedures Performed: Right Total Knee Arthroplasty Pending Studies Studies pending at discharge: no Medical Emergencies . Who to Call and When: Medical Emergencies: If at any time you feel your situation is an emergency, please call [phone] immediately. . Non-Emergent Contact Non-Emergency issues call your: Surgeon . "Provider Documentation" section prepared by Yan Godoy. .
--- NOTE | 2017-06-12 08:15 | PROGRESS NOTE ---
DATE: 06/12/2017 SUBJECTIVE: A 46-year-old white female postop day 1 from right knee replacement. The patient doing pretty well. Pain is controlled. Denies any chest pain or shortness of breath. Not feeling dizzy or lightheaded. She is hoping to go home today. OBJECTIVE: VITAL SIGNS: Temperature 36.4. Vital signs stable. GENERAL: Reveals a healthy, pleasant, middle-aged female. She is sitting up in bed, looks pretty comfortable. LUNGS: Clear to auscultation. HEART: Regular rate and rhythm. ABDOMEN: Soft, nontender, nondistended. EXTREMITIES: Grossly neurovascularly intact except as follows: Examination of the right leg reveals the leg to be well aligned. Dressing is clean, dry and intact. She can dorsiflex and plantarflex her foot appropriately. She is neurologically intact. LABORATORY DATA: Hemoglobin is 11.2. Hematocrit 34.8. Electrolytes are stable. ASSESSMENT: A 46-year-old white female postop day 1 from right knee replacement, doing pretty well. Pain is controlled. She is neurologically intact. PLAN: 1. DVT prophylaxis including thigh-high TEDs, SCDs, and aspirin twice a day. 2. PT/OT. Weight bear as tolerated. Right total knee protocol. 3. Pain control, doing well with current pain regimen. 4. Disposition: She is hoping to be discharged home today. She is going to have home health. We will give her instructions on bandage change.
[2017-06-12] MEDS: FERROUS GLUCONATE 324 MG TAB PO SCH ×2 (08:43→12:12)
[2017-06-12] MEDS: TAPENTADOL ER 50 MG TABCR PO SCH (08:43)
[2017-06-12] MEDS: ASPIRIN 81 MG ECTAB PO SCH (08:43)
[2017-06-12] MEDS: DOCUSATE SODIUM 100 MG CAP PO SCH (08:43)
[2017-06-12] MEDS ORDERED: PANTOprazole SOD 40 MG TAB PO SCH ×2 (09:00)
[2017-06-12] MEDS ORDERED: MULTIVITAMIN TAB PO SCH (09:00)
[2017-06-12] MEDS: MoRPHine SULFATE 2 MG/ML CARP IV PRN (10:11)
[2017-06-12 10:44] VITALS: BP 119/76; PULSE 71; TEMP 36.4; O2SAT 95
[2017-06-12 11:01] VITALS: BP 120/76; PULSE 74; O2SAT 97
== END 2017-06-12 15:05 | disposition home health service (06) | DRG 470 ==
LOC: C.ACU 09:55 → C.3E 13:48 → ENRESERV 14:21
PROVIDERS: ADMIT Orthopaedic Surgery Sports Medicine; ATTEND Orthopaedic Surgery Sports Medicine
PROC: 0SRC0J9 Replacement of Right Knee Joint with Synthetic Substitute, Cemented, Open Approach (ICD-10-PCS; principal; 2017-06-11 13:00)
DX: M17.11 Unilateral primary osteoarthritis, right knee (principal); Z68.41 Body mass index [BMI] 40.0-44.9, adult; K21.9 Gastro-esophageal reflux disease without esophagitis; E66.9 Obesity, unspecified; Z79.899 Other long term (current) drug therapy; Z96.652 Presence of left artificial knee joint; Z88.0 Allergy status to penicillin